=== PATIENT | male | born 1955 | race Caucasian/White ===

== ENCOUNTER 2022-11-17 10:58 | Observation (INO) | payer MEDICAID ==
[~2022-11-17] VITALS: Ht 172.7 cm; Wt 70.3 kg
[~2022-11-17 10:58] MED LIST: HYDACE5 PO
[2022-11-17 11:11] LABS: BASOPHILS ABSOLUTE AUTO 0.07 K/mm3 (0.00-0.23); BASOPHILS PERCENT AUTO 1 % (0-2); EOSINOPHILS ABSOLUTE AUTO 0.27 K/mm3 (0.00-0.68); EOSINOPHILS PERCENT AUTO 3 % (0-6); Hematocrit 42.5 % (37.0-53.0); Hemoglobin 14.3 g/dL (13.5-17.5); IMMATURE GRAN ABSOLUTE AUTO 0.03 K/mm3 (0.00-0.10); IMMATURE GRAN PERCENT AUTO 0 % (0-1); LYMPHOCYTES ABSOLUTE AUTO 1.49 K/mm3 (0.84-5.20); LYMPHOCYTES PERCENT AUTO 14 % (21-46); MONOCYTES ABSOLUTE AUTO 0.63 K/mm3 (0.16-1.47); MONOCYTES PERCENT AUTO 6 % (4-13); Mean Corpuscular HGB 30.3 pg (26.0-34.0); Mean Corpuscular HGB Conc 33.6 g/dL (31.5-36.5); Mean Corpuscular Volume 90 fL (80-100); Mean Platelet Volume 10.9 fL (9.1-12.4); NEUTROPHILS ABSOLUTE AUTO 8.37 K/mm3 (1.96-9.15); NEUTROPHILS PERCENT AUTO 77 % (41-73); Platelet Count 182 K/mm3 (150-400); RDW Coefficient Variation 13.4 % (11.7-14.2); RDW Standard Deviation 44.2 fL (35.1-46.3); Red Blood Cell Count 4.72 M/mm3 (4.30-5.90); White Blood Cell Count 10.86 K/mm3 (4.00-11.30)
[2022-11-17 11:40] LABS: Albumin, Blood 3.7 g/dL (3.4-5.0); Albumin/Globulin Ratio 1.1 (0.8-1.8); Bilirubin, Total 0.4 mg/dL (0.1-1.0); Bun/Creatinine Ratio 11.5 (12.0-20.0); Calcium, Blood 8.9 mg/dL (8.5-10.1); Creatinine, Blood 1.04 mg/dL (0.60-1.20); Globulin, Blood 3.4 g/dL (2.2-4.0); Potassium, Blood 3.8 mmol/L (3.5-5.5); Total Protein, Blood 7.1 g/dL (6.4-8.2)
[2022-11-17 11:46] LABS: International Normalized Ratio 0.94; Prothrombin Time Results 9.9 Sec (9.7-11.5)
[2022-11-17 15:00] VITALS: BP 158/95
[2022-11-17 16:44] LABS: BASOPHILS ABSOLUTE AUTO 0.06 K/mm3 (0.00-0.23); BASOPHILS PERCENT AUTO 1 % (0-2); EOSINOPHILS ABSOLUTE AUTO 0.12 K/mm3 (0.00-0.68); EOSINOPHILS PERCENT AUTO 1 % (0-6); Hematocrit 43.3 % (37.0-53.0); Hemoglobin 14.6 g/dL (13.5-17.5); IMMATURE GRAN ABSOLUTE AUTO 0.03 K/mm3 (0.00-0.10); IMMATURE GRAN PERCENT AUTO 0 % (0-1); LYMPHOCYTES ABSOLUTE AUTO 1.16 K/mm3 (0.84-5.20); LYMPHOCYTES PERCENT AUTO 9 % (21-46); MONOCYTES ABSOLUTE AUTO 0.73 K/mm3 (0.16-1.47); MONOCYTES PERCENT AUTO 6 % (4-13); Mean Corpuscular HGB 30.5 pg (26.0-34.0); Mean Corpuscular HGB Conc 33.7 g/dL (31.5-36.5); Mean Corpuscular Volume 90 fL (80-100); Mean Platelet Volume 10.9 fL (9.1-12.4); NEUTROPHILS ABSOLUTE AUTO 10.55 K/mm3 (1.96-9.15); NEUTROPHILS PERCENT AUTO 83 % (41-73); Platelet Count 181 K/mm3 (150-400); RDW Coefficient Variation 13.4 % (11.7-14.2); RDW Standard Deviation 44.7 fL (35.1-46.3); Red Blood Cell Count 4.79 M/mm3 (4.30-5.90); White Blood Cell Count 12.65 K/mm3 (4.00-11.30)
[2022-11-17 17:08] LABS: International Normalized Ratio 1.01; Prothrombin Time Results 10.6 Sec (9.7-11.5)
--- NOTE | 2022-11-17 18:41 | NUR ---
PT HAS BEEN STABLE SINCE ADMISSION. LEFT HAND SWELLING AND DISCOLORATION UNCHANGED, ALTHOUGH PT STATES IT IS BETTER THAN WHEN IN ER. PICTURES TAKEN AND PLACED ON CHART. MARGINS DRAWN ON LEFT INDEX FINGER. LABS HAVE BEEN NORMAL. POISON CONTROL RECOMMENDED MAINTENENCE DOSE OF ANTIVENOM WHICH HAS BEEN ORDERED. LABS TO REPEAT 1HR AFTER EACH DOSE COMPLETE. PT REMAINS HYPERTENSIVE AT TIMES. TELE S. KARLI WITH PVC'S. VOIDING WITH URINAL. AFFECTED HAND ELEVATED ON PILLOWS, NO ICE PER POISON CONTROL. LIGHT DRESSING TO LEFT FINGER FOR OOZING. PT CALLS APPROPRIATELY NEEDED.
[2022-11-17 20:24] VITALS: BP 166/93
--- NOTE | 2022-11-17 20:51 | NUR ---
POISON CONTROL 2051 CALLED AND UPDATED PC REGARDING PATIENT STATUS AND CROFAB DOSING. ASKED ABOUT WHICH LABS TO DRAW POST DOSING. LABS ARE FOLLOWS: (CBC W/ PLATELETS, PT/PTT/INR, AND FIBRINOGEN). LABS TO BE 1 HR POST EACH DOSE, 12 HOURS POST LAST DOSE, AND PRE DISCHARGE.
[2022-11-17 22:05] LABS: BASOPHILS ABSOLUTE AUTO 0.07 K/mm3 (0.00-0.23); BASOPHILS PERCENT AUTO 1 % (0-2); EOSINOPHILS ABSOLUTE AUTO 0.07 K/mm3 (0.00-0.68); EOSINOPHILS PERCENT AUTO 1 % (0-6); Hemoglobin 13.8 g/dL (13.5-17.5); IMMATURE GRAN ABSOLUTE AUTO 0.04 K/mm3 (0.00-0.10); IMMATURE GRAN PERCENT AUTO 0 % (0-1); LYMPHOCYTES ABSOLUTE AUTO 0.74 K/mm3 (0.84-5.20); LYMPHOCYTES PERCENT AUTO 7 % (21-46); MONOCYTES ABSOLUTE AUTO 0.59 K/mm3 (0.16-1.47); MONOCYTES PERCENT AUTO 5 % (4-13); Mean Corpuscular HGB 30.9 pg (26.0-34.0); Mean Corpuscular HGB Conc 34.5 g/dL (31.5-36.5); Mean Corpuscular Volume 90 fL (80-100); Mean Platelet Volume 10.7 fL (9.1-12.4); NEUTROPHILS ABSOLUTE AUTO 9.66 K/mm3 (1.96-9.15); NEUTROPHILS PERCENT AUTO 87 % (41-73); Platelet Count 177 K/mm3 (150-400); RDW Coefficient Variation 13.5 % (11.7-14.2); RDW Standard Deviation 44.6 fL (35.1-46.3); Red Blood Cell Count 4.47 M/mm3 (4.30-5.90); White Blood Cell Count 11.17 K/mm3 (4.00-11.30)
[2022-11-17 22:24] LABS: Prothrombin Time Results 10.5 Sec (9.7-11.5)
--- NOTE | 2022-11-17 23:07 | NUR ---
POISON CONTROL SPOKE WITH PC ABOUT POST CROFAB LABS AND PATIENT MONITORING. SPOKE ABOUT CONTNUED SWELLING TO FINGERS/PAIN. SPOKE REGARDING PAIN MANAGEMENT REGIMEN. MINOR IMPROVEMENTS NOTED IN COAG LABS. PC REP STATES TO CONTINUE COURSE OF TREATMENT AND TO CALL BACK WITH NEXT SET OF LABS.
[2022-11-18 02:06] VITALS: BP 120/69
[2022-11-18 02:45] VITALS: BP 107/76
[2022-11-18 04:24] LABS: BASOPHILS ABSOLUTE AUTO 0.07 K/mm3 (0.00-0.23); BASOPHILS PERCENT AUTO 1 % (0-2); EOSINOPHILS ABSOLUTE AUTO 0.25 K/mm3 (0.00-0.68); EOSINOPHILS PERCENT AUTO 3 % (0-6); Hematocrit 36.7 % (37.0-53.0); Hemoglobin 12.4 g/dL (13.5-17.5); IMMATURE GRAN ABSOLUTE AUTO 0.01 K/mm3 (0.00-0.10); IMMATURE GRAN PERCENT AUTO 0 % (0-1); LYMPHOCYTES ABSOLUTE AUTO 1.43 K/mm3 (0.84-5.20); LYMPHOCYTES PERCENT AUTO 18 % (21-46); MONOCYTES ABSOLUTE AUTO 0.49 K/mm3 (0.16-1.47); MONOCYTES PERCENT AUTO 6 % (4-13); Mean Corpuscular HGB 30.5 pg (26.0-34.0); Mean Corpuscular HGB Conc 33.8 g/dL (31.5-36.5); Mean Corpuscular Volume 90 fL (80-100); Mean Platelet Volume 10.6 fL (9.1-12.4); NEUTROPHILS ABSOLUTE AUTO 5.52 K/mm3 (1.96-9.15); NEUTROPHILS PERCENT AUTO 71 % (41-73); Platelet Count 157 K/mm3 (150-400); RDW Coefficient Variation 13.6 % (11.7-14.2); RDW Standard Deviation 45.5 fL (35.1-46.3); Red Blood Cell Count 4.06 M/mm3 (4.30-5.90); White Blood Cell Count 7.77 K/mm3 (4.00-11.30)
[2022-11-18 04:57] LABS: International Normalized Ratio 0.99; Prothrombin Time Results 10.4 Sec (9.7-11.5)
--- NOTE | 2022-11-18 05:13 | NUR ---
Posion Control Contact. Updated posion control afte most recent antivenom dose. Labs values given. Noted possible incease in swelling but may be related to dependent position that Pt is in. No additional recommedations at this time. Phone back after next dose and will give more information for next steps.
--- NOTE | 2022-11-18 06:21 | NUR ---
End of shift note. Pt has had a decent night. Early on in the shift, Pt struggled with pain control but after switching IV med and starting PO he reports he has been more comfortable. IV antivenom has been given per posion control recommedations. Labs taken accordingly. Left finger looks to be unchanged from start of shift. Possibly more swelling to wrist/forearm but Pt was allowing arm to be dependent. After repositioning with pillows. swelling seems to be improving/stable. Urine concentrated. PO fluids encouraged. Pt did refuse to take off work boots or jeans all shift. Refused SCDs. Pt is able to make needs known, call light is within reach.
[2022-11-18 08:41] VITALS: BP 135/78
--- NOTE | 2022-11-18 08:56 | NUR ---
AM NOTE... ASSUMED CARE OF PT AT 0700, PT IS A&Ox4. THE PT'S RIGHT INDEX FINGER IS SWOLLEN WITH TIGHT SKIN, THE DISTAL TIP OF THE FINGER IS DUSKY AND PURPLE, PT STATES HE HAS NO FEELING TO THAT FINGER "IT FEELS LIKE A CHUNK OF WOOD." PT DENIES ANY FUTHER NUMBNESS. HE IS IN S[place] IN THE 40'S-50'S BP IS STABLE WITH MAPS>65. HE IS ON RA WITH O2 SATS>95% L/S CLEAR T/O. BT PRESENT AND HYPERACTIVE, ABD IS SOFT AND NONTENDER TO PALPATION. PT WAS MEDICATED FOR PAIN PER EMAR, HE HAD 1 EPISODE OF N/V AFTER GETTING THE IV PAIN MEDICATION, HE WAS MEDICATED PER EMAR WITH ZOFRAN WITH GOOD RESULTS. CALL LIGHT IN REACH WILL CONTINUE TO MONITOR.
[2022-11-18 11:26] LABS: BASOPHILS ABSOLUTE AUTO 0.06 K/mm3 (0.00-0.23); BASOPHILS PERCENT AUTO 1 % (0-2); EOSINOPHILS ABSOLUTE AUTO 0.15 K/mm3 (0.00-0.68); EOSINOPHILS PERCENT AUTO 2 % (0-6); Hematocrit 39.6 % (37.0-53.0); Hemoglobin 13.1 g/dL (13.5-17.5); IMMATURE GRAN ABSOLUTE AUTO 0.03 K/mm3 (0.00-0.10); IMMATURE GRAN PERCENT AUTO 0 % (0-1); LYMPHOCYTES ABSOLUTE AUTO 0.87 K/mm3 (0.84-5.20); LYMPHOCYTES PERCENT AUTO 10 % (21-46); MONOCYTES ABSOLUTE AUTO 0.51 K/mm3 (0.16-1.47); MONOCYTES PERCENT AUTO 6 % (4-13); Mean Corpuscular HGB 30.1 pg (26.0-34.0); Mean Corpuscular HGB Conc 33.1 g/dL (31.5-36.5); Mean Corpuscular Volume 91 fL (80-100); Mean Platelet Volume 10.5 fL (9.1-12.4); NEUTROPHILS ABSOLUTE AUTO 6.86 K/mm3 (1.96-9.15); NEUTROPHILS PERCENT AUTO 81 % (41-73); Platelet Count 158 K/mm3 (150-400); RDW Coefficient Variation 13.6 % (11.7-14.2); RDW Standard Deviation 46.1 fL (35.1-46.3); Red Blood Cell Count 4.35 M/mm3 (4.30-5.90); White Blood Cell Count 8.48 K/mm3 (4.00-11.30)
[2022-11-18 11:32] VITALS: BP 121/71
[2022-11-18 11:43] LABS: International Normalized Ratio 0.98; Prothrombin Time Results 10.3 Sec (9.7-11.5)
[2022-11-18 15:40] VITALS: BP 159/78
[2022-11-18 16:36] VITALS: BP 153/84
--- NOTE | 2022-11-18 19:04 | NUR ---
PT DISCHARGE TO HOME WITH DISCHARGE ORDERS. PT LAST DOSE OF ANTIVENOM WAS INFUSED PRIOR TO DISCHARGE. PT WAS ASSISTED BY LICENSING ANALYST TO [facility] BEFORE THEY CLOSE TO GET HIS PAIN MEDS PRESCRIPTION THEN BACK TO THE FACILITY. PT'S RIDE ARRIVED AT 1820, ALL BELONGINGS SENT WITH THE PT.
== END 2022-11-18 18:45 | disposition home or self-care (01) ==
LOC: ER 10:58 → PCU 13:49
PROVIDERS: Internal Medicine; Student in an Organized Health Care Education/Training Program; ADMIT Internal Medicine
DX: T63.001A Toxic effect of unspecified snake venom, accidental (unintentional), initial encounter (principal)
CPT/HCPCS: 36415; 80053; 82550; 83605; 85025; 85384; 85610; 85730; 93005; 93010; 96365; 96366; 96375; 96376; 99285-25; A9270; G0378; J0840; J1170; J2405; J3010; J7030; J7050

== ENCOUNTER → 2022-11-21 | Outpatient (CLI) | payer MEDICAID | END | disposition home or self-care (01) | LOC: LAB 20:44 → LAB SHORT 20:44 | DX: S61.209A Unspecified open wound of unspecified finger without damage to nail, initial encounter (principal); W59.11XA Bitten by nonvenomous snake, initial encounter | CPT/HCPCS: 87070; 87075; 87077; 87186; 87205 ==

== ENCOUNTER → 2023-01-22 | Outpatient (CLI) | payer OTHER ==
[2023-01-22 17:19] LABS: BASOPHILS ABSOLUTE AUTO 0.08 K/mm3 (0.00-0.23); BASOPHILS PERCENT AUTO 1 % (0-2); EOSINOPHILS ABSOLUTE AUTO 0.13 K/mm3 (0.00-0.68); EOSINOPHILS PERCENT AUTO 2 % (0-6); Hematocrit 39.4 % (37.0-53.0); Hemoglobin 13.1 g/dL (13.5-17.5); IMMATURE GRAN ABSOLUTE AUTO 0.02 K/mm3 (0.00-0.10); IMMATURE GRAN PERCENT AUTO 0 % (0-1); LYMPHOCYTES PERCENT AUTO 19 % (21-46); MONOCYTES PERCENT AUTO 8 % (4-13); Mean Corpuscular HGB 30.3 pg (26.0-34.0); Mean Corpuscular HGB Conc 33.2 g/dL (31.5-36.5); Mean Corpuscular Volume 91 fL (80-100); Mean Platelet Volume 11.6 fL (9.1-12.4); NEUTROPHILS ABSOLUTE AUTO 5.14 K/mm3 (1.96-9.15); NEUTROPHILS PERCENT AUTO 70 % (41-73); Platelet Count 171 K/mm3 (150-400); RDW Coefficient Variation 13.2 % (11.7-14.2); RDW Standard Deviation 44.7 fL (35.1-46.3); Red Blood Cell Count 4.33 M/mm3 (4.30-5.90); White Blood Cell Count 7.37 K/mm3 (4.00-11.30)
[2023-01-22 19:46] LABS: Alanine Aminotransfer (ALT/SGP 24 U/L (12-78); Albumin, Blood 3.8 g/dL (3.4-5.0); Albumin/Globulin Ratio 1.3 (0.8-1.8); Alk Phos 63 U/L (50-136); Anion Gap 7 mmol/L (6-16); Aspartate Aminotrans (AST/SGOT 23 U/L (12-37); Bilirubin, Total 0.6 mg/dL (0.1-1.0); Blood Urea Nitrogen 15 mg/dL (8-24); Bun/Creatinine Ratio 14.7 (12.0-20.0); CHOL/HDL RATIO 2.7; CO2, Blood 24 mmol/L (21-32); Calcium, Blood 8.7 mg/dL (8.5-10.1); Chloride, Blood 108 mmol/L (98-108); Cholesterol 156 mg/dL (50-200); Creatinine, Blood 1.02 mg/dL (0.60-1.20); Glomerular Filtration Rate 80 (60-); Glucose, Blood 88 mg/dL (70-99); HDL Cholesterol 57 mg/dL (>39); LDL/HDL RATIO 1.5; Low Density Lipoprotein Chol 88 mg/dL (0-110); Sodium, Blood 139 mmol/L (136-145); Total Protein, Blood 6.8 g/dL (6.4-8.2); Triglycerides 54 mg/dL (30-160); Very Low Density Lipoprot Chol 10 mg/dL (6-32)
[2023-01-23 10:59] LABS: Percent Saturation 23.4 % (20.0-50.0)
== END ==
LOC: LAB SHORT 16:20 → LAB 16:20
PROVIDERS: Internal Medicine
DX: Z00.00 Encounter for general adult medical examination without abnormal findings (principal); Z13.220 Encounter for screening for lipoid disorders; E53.8 Deficiency of other specified B group vitamins; E61.1 Iron deficiency
CPT/HCPCS: 80053; 80061; 82607; 82728; 82746; 83540; 83550; 85025